=== PATIENT | male | born 1990 | race Caucasian/White ===

== ENCOUNTER 2022-09-05 19:10 | Emergency (ER) | payer OTHER ==
[~2022-09-05] VITALS: Ht 175.3 cm; Wt 83.9 kg
== END 2022-09-05 22:31 | disposition home or self-care (01) ==
LOC: ER 19:10
DX: R07.9 Chest pain, unspecified (principal); Z20.822 Contact with and (suspected) exposure to COVID-19; Z88.0 Allergy status to penicillin